=== PATIENT | female | born 1950 | race Caucasian/White ===

== ENCOUNTER → 2020-02-09 | Outpatient (CLI) | payer OTHER, MEDICAID ==
[~2020-02-09] MED LIST: ARIP2TAB3 PO; ATOR40TA59 PO; CARB1TAB47 PO; DILT180C29 PO; EMPA25TA PO; ESOM40CA PO; INSU100V37 SQ; LISI10TA2 PO; METF10007 PO; MULT-697 PO; POTA10TA6 PO; SITA50TA PO; VENL150T PO
== END ==
LOC: LAB 11:20
PROVIDERS: ATTEND Dentist Oral and Maxillofacial Surgery
DX: Z01.812 Encounter for preprocedural laboratory examination (principal); Z20.828 Contact with and (suspected) exposure to other viral communicable diseases
CPT/HCPCS: U0003

== ENCOUNTER 2020-02-14 11:23 | Day surgery (SDC) | payer OTHER, MEDICAID ==
[~2020-02-14] VITALS: Ht 165.1 cm; Wt 230.0 kg
[~2020-02-14 11:23] MED LIST changes: +BACITRACIN 50,000 UNIT in IV NORMAL SALINE 500ML BAG 500 ML IRR ONE; +BUPIVACAINE-EPI 0.5%-1:200000 MPF 30 ML VIAL. INJ ONE; +HYDROmorphone 2 MG/ML VIAL IV PRN; +IV RINGERS,LACTATED 1000ML 1,000 ML IV SCH; +LIDOCAINE 1% PF 2 ML VIAL. ID PRN; +MORPHINE SULFATE 2 MG/ML VIAL. IV PRN; +ONDANSETRON PF 4 MG/2 ML VIAL. IV PRN; +PROCHLORPERAZINE 10 MG/2 ML VIAL. IV PRN; +fentaNYL PF VIAL 100 MCG/2 ML VIAL IV PRN
[2020-02-14] MEDS ORDERED: INSULIN LISPRO 100 UNIT/ML 3ML VIAL for OP,RR ONLY. SQ PRN (11:45)
[2020-02-14] MEDS ORDERED: INSULIN LISPRO 100 UNIT/ML 3ML VIAL for OP,RR ONLY. SQ ONE (13:00)
[2020-02-14] MEDS ORDERED: ROCURONIUM 50 MG/5 ML VIAL. ONE (13:11)
[2020-02-14] MEDS ORDERED: PROPOFOL 10 MG/ML (20ML) VIAL. IV ONE (13:11)
[2020-02-14] MEDS ORDERED: LIDOCAINE 2% PF 5 ML VIAL. ONE (13:11)
[2020-02-14] MEDS ORDERED: GELATIN SPONGE SIZE 100. ONE (13:38)
[2020-02-14] MEDS ORDERED: CHLORHEXIDINE 0.12% 15 ML MOUTHWASH. ONE ×2 (13:38)
[2020-02-14] MEDS ORDERED: fentaNYL PF VIAL 100 MCG/2 ML VIAL ONE (14:40)
[2020-02-14] MEDS ORDERED: GLYCOPYRROLATE 1 MG/5 ML VIAL. ONE (15:27)
[2020-02-14] MEDS ORDERED: NEOSTIGMINE METHYLSULFATE 5 MG/5 ML SYRINGE. ONE (15:27)
[2020-02-14] MEDS ORDERED: ONDANSETRON PF 4 MG/2 ML VIAL. ONE (15:30)
--- NOTE | 2020-02-14 15:53 | PDOC4 ---
OPERATIVE NOTE Date: Date: Feb 14, 2020 Pre-Op Diagnosis: Parkinsons Morbid obesity CAD HTN ALFONZO GERD Anxiety/depression non restorable teeth # 6, 17,19,20,21,31 Post-Op Diagnosis: same Procedure Performed: surgical removal of non restorable teeth # 6, 17,19,20,21,31 Surgeon: raul Anesthesia Type: sarai/gerardo Blood Loss: 10 Specimans Obtained: teeth disposed of in OR Findings: see dictation non restorable teeth # 6, 17,19,20,21,31 Complications: none Operative Note: see dictation non restorable teeth # 6, 17,19,20,21,31 SARAI HERNANDEZ DMD Feb 14, 2020 15:53
--- NOTE | 2020-02-14 16:25 | OP ---
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 ATTENDING PHYSICIAN: Frederick Hernandez DMD PREOPERATIVE DIAGNOSES: Parkinson's, morbid obesity, coronary artery disease, hypertension, diabetes type 2, gastroesophageal reflux disease, hyperlipidemia, obstructive sleep apnea, anxiety, depression. She has caries, nonrestorable teeth #6, 17, 19, 20, 21 and 31. POSTOPERATIVE DIAGNOSES: Parkinson's, morbid obesity, coronary artery disease, hypertension, diabetes type 2, gastroesophageal reflux disease, hyperlipidemia, obstructive sleep apnea, anxiety, depression. She has caries, nonrestorable teeth #6, 17, 19, 20, 21 and 31. PROCEDURES PERFORMED: Surgical removal of aforementioned teeth 6, 17, 19, 20, 21, 31. BRIEF HISTORY: The patient is a 69-year-old female with multiple comorbidities who was referred by Dr. Mckee for removal of teeth #6, 17,19, 20, 21 and 31. The patient has high anxiety due to her multiple comorbidities escalated the setting of care to the OR. History and physical was performed in our clinic and permit was obtained. COMPLICATIONS: None noted at the time of surgery. DRAINS PLACED: None. SPECIMEN SENT: None. ESTIMATED BLOOD LOSS: Approximately 10 mL. OPERATIVE DESCRIPTION: After the history and physical was updated in the preoperative holding area, the patient was transported by the Anesthesia Service to the operating suite, placed in the supine position. General anesthesia was induced. All pressure points were padded and checked. The patient was secured to the table. Surgical timeout was initiated and all surgical staff was in agreeance. The patient was prepped and draped in normal sterile fashion. Local anesthesia in the form of 0.5% bupivacaine, 1:200,000 epinephrine was administered into the proposed surgical sites. Approximately 22 mL of the beginning of the procedure, an additional 8 mL were administered at the culmination of the procedure. A #15 blade was utilized with a throat pack was placed. Periosteal elevation was utilized to teeth #6, 17, 19, 20, 21, and 31 with elevation was performed with elevators, hand instruments, forceps and rotary instrumentations were indicated. Teeth were luxated without complication and removed. Also, extraction sites were curetted, lavaged and suctioned. A bone file was utilized to smooth off the bony edges and copious normal sterile saline lavage was performed and all extraction sites were packed with Gelfoam and oversewn with 3-0 chromic gut sutures and interrupted sutures and running locked sutures in the lower left quadrant. Oral cavity was then lavaged and suctioned and the moistened throat pack was removed. An OG was passed and the stomach was decompressed. The patient was then returned to the care of anesthesia, where she was awakened and extubated without complication and transported to the PACU in stable condition. FREDERICK HERNANDEZ DMD DR: Alysa JOB#: [id number] / [id number] MANDEEP
== END 2020-02-14 17:02 | disposition home or self-care (01) ==
LOC: SURG 11:23
PROVIDERS: ATTEND Dentist Oral and Maxillofacial Surgery
DX: K02.63 Dental caries on smooth surface penetrating into pulp (principal); I25.10 Atherosclerotic heart disease of native coronary artery without angina pectoris; E66.01 Morbid (severe) obesity due to excess calories; I10 Essential (primary) hypertension; E11.9 Type 2 diabetes mellitus without complications; K21.9 Gastro-esophageal reflux disease without esophagitis; G47.33 Obstructive sleep apnea (adult) (pediatric); E78.5 Hyperlipidemia, unspecified; F41.9 Anxiety disorder, unspecified; F32.9 Major depressive disorder, single episode, unspecified; Z90.710 Acquired absence of both cervix and uterus; Z98.51 Tubal ligation status; Z98.890 Other specified postprocedural states; Z79.84 Long term (current) use of oral hypoglycemic drugs; Z79.899 Other long term (current) drug therapy; Z88.2 Allergy status to sulfonamides
CPT/HCPCS: 41899; 82962; J0690; J1815; J2405; J2704; J2710; J3010; J3490; J7040